=== PATIENT | female | born 1975 | race Caucasian/White ===

== ENCOUNTER 2021-01-24 10:21 | Emergency (ER) | payer OTHER ==
[2021-01-24] MEDS ORDERED: SODIUM CHLORIDE 0.9% 1,000 ML IV STA (11:00)
[2021-01-24] MEDS ORDERED: ONDANSETRON 4 MG/2 ML VIAL IVP STA (11:00)
[2021-01-24] MEDS ORDERED: KETOROLAC 15 MG/ML 1 ML VIAL IVP STA (11:00)
--- NOTE | 2021-01-24 11:32 | XR ---
EXAMINATION TYPE: XR KUB DATE OF EXAM: 01/24/2021 COMPARISON: NONE HISTORY: Pain TECHNIQUE: Single supine KUB image of the abdomen is obtained FINDINGS: Small bowel demonstrates no evidence for dilatation or air fluid levels. Gas and fecal material is seen in non-distended colon. No convincing evidence for pneumoperitoneum. 9.5 mm calculus mid pole right kidney. The lung bases are clear. The osseous structures are intact. IMPRESSION: 1. Overall nonobstructive bowel gas pattern. Right renal calculus.
[2021-01-24 12:20] LABS: Basophils % (A) 0 %; Eosinophils # (A) 0.2 k/uL (0-0.7); Eosinophils % (A) 3 %; HCT 45.9 % (34.0-46.0); HGB 15.3 gm/dL (11.4-16.0); Lymphocytes # (A) 2.2 k/uL (1.0-4.8); Lymphocytes % (A) 26 %; MCH 30.9 pg (25.0-35.0); MCHC 33.3 g/dL (31.0-37.0); MCV 92.7 fL (80.0-100.0); Mean Platelet Volume 7.9; Monocytes # (A) 0.4 k/uL (0-1.0); Monocytes % (A) 5 %; Neutrophils # (A) 5.6 k/uL (1.3-7.7); Neutrophils % (A) 66 %; Platelet Count 270 k/uL (150-450); RBC 4.95 m/uL (3.80-5.40); RDW 13.1 % (11.5-15.5); WBC 8.5 k/uL (3.8-10.6)
[2021-01-24 12:21] LABS: ALT 12 U/L (4-34); AST 19 U/L (14-36); African American GFR (CKD) >90 (>60 ml/min/1.73 sqM); Albumin 3.6 g/dL (3.5-5.0); Alkaline Phosphatase 84 U/L (38-126); Anion Gap 6 mmol/L; Blood Urea Nitrogen 5 mg/dL (7-17); Calcium 8.6 mg/dL (8.4-10.2); Carbon Dioxide 21 mmol/L (22-30); Chloride 110 mmol/L (98-107); Glucose 91 mg/dL (74-99); Lipase 75 U/L (23-300); Non-African American GFR(CKD) >90 (>60 ml/min/1.73 sqM); Potassium 3.9 mmol/L (3.5-5.1); Sodium 137 mmol/L (137-145); Total Bilirubin 0.5 mg/dL (0.2-1.3); Total Protein 6.6 g/dL (6.3-8.2)
--- NOTE | 2021-01-24 12:37 | ED ---
Abdominal Pain HPI - General Chief Complaint: Abdominal Pain Stated Complaint: kidney stone Time Seen by Provider: 01/24/21 10:53 Source: patient Mode of arrival: ambulatory Limitations: no limitations - History of Present Illness Initial Comments: Patient is a 45-year-old female with history of kidney stones, presenting to the emergency department for reexamination. Patient states that she went to [facility] on Sunday, 3 days ago, was sent to [facility] and it was his observation patient. Patient states she was confused is why she was placed in observation and they stated that they did not have urology over the weekend. Patient states she left AMA because she was not getting any care there. Patient did have a CT on Sunday which showed a 10 mm obstructing right renal pelvis stone with mild hydronephrosis. They told her she would need a lithotripsy. She is not seen urology in the past. She denies any fevers or chills. She states currently her pain is about a 7/10 but despite higher than that times. She states the pain is on the right flank with radiation towards the right side. She does admit to some occasional hematuria. Some mild nausea, no vomiting. She denies any chest pain or shortness of breath. She has no further complaints at this time. Upon arrival to the ER her vitals are stable. - Related Data Home Medications Medication Instructions Recorded Confirmed Albuterol Inhaler [Ventolin Hfa 2 puff INHALATION RT-QID PRN 01/24/21 01/24/21 Inhaler] Ascorbic Acid [Vitamin C] 1,000 mg PO DAILY 01/24/21 01/24/21 Cetirizine HCl [Zyrtec] 10 mg PO DAILY PRN 01/24/21 01/24/21 Cholecalciferol (Vitamin D3) 125 mcg PO DAILY 01/24/21 01/24/21 [Vitamin D3 (125 MCG = 5,000 IU)] HYDROcodone/APAP 5-325MG [[place] 1 tab PO Q4H PRN 01/24/21 01/24/21 5-325] Ibuprofen [Motrin] 600 mg PO Q6H PRN 01/24/21 01/24/21 Multivitamins, Thera [Multivitamin 1 tab PO DAILY 01/24/21 01/24/21 (formulary)] Ondansetron [Zofran ODT] 4 mg PO Q8H PRN 01/24/21 01/24/21 Tamsulosin HCl [Flomax] 0.4 mg PO DAILY 01/24/21 01/24/21 Allergies Allergy/AdvReac Type Severity Reaction Status Date / Time No Known Allergies Allergy Verified 01/24/21 12:34 Review of Systems ROS Statement: Those systems with pertinent positive or pertinent negative responses have been documented in the HPI. ROS Other: All systems not noted in ROS Statement are negative. Past Medical History Additional Past Medical History / Comment(s): kidney stones, hodgins lyphoma History of Any Multi-Drug Resistant Organisms: None Reported Past Surgical History: Cholecystectomy, Tubal Ligation Past Psychological History: No Psychological Hx Reported Smoking Status: Current every day smoker Past Alcohol Use History: None Reported Past Drug Use History: Marijuana General Exam - General Exam Comments Initial Comments: GENERAL: Patient is well-developed and well-nourished. Patient is nontoxic and in no acute distress. HEAD: Atraumatic, normocephalic. EYES: Pupils equal round and reactive to light, extraocular movements intact, sclera anicteric, conjunctiva are normal. Eyelids were unremarkable. ENT: Nares patent, oropharynx clear without exudates. Moist mucous membranes. NECK: Normal range of motion, supple without lymphadenopathy or JVD. LUNGS: Unlabored respirations. Breath sounds clear to auscultation bilaterally and equal. No wheezes rales or rhonchi. HEART: Regular rate and rhythm without murmurs, rubs or gallops. ABDOMEN: Soft, mild tenderness to the right flank, right side of the abdomen, normoactive bowel sounds. No guarding, no rebound. No masses appreciated. : Deferred MUSCULOSKELETAL: Normal extremities with adequate strength and normal range of motion, no pitting or edema. No clubbing or cyanosis. NEUROLOGICAL: Patient is alert and oriented x 3. SKIN: Warm, Dry, normal turgor, no rashes or lesions noted. Limitations: no limitations Course Vital Signs 01/24/21 01/24/21 01/24/21 10:44 13:00 14:19 Temperature 98.1 F 98.3 F Pulse Rate 89 72 78 Respiratory 18 16 16 Rate Blood Pressure 174/104 146/55 155/84 O2 Sat by Pulse 98 100 99 Oximetry Medical Decision Making - Medical Decision Making Patient is a 45-year-old female with history of kidney stones, presenting for reexamination. She was at [facility] 3 days ago after finding a 10 mm obstructing right renal pelvis stone. She was then transferred to [facility] and has been waiting to see urologist so she left AMA today and came here for reevaluation. Her pain has been consistent over the past about 4 days, intermittent right flank pain. Patient had CT done at [facility] on 01/22/2021, reads 10 mm obstructing right renal pelvis stone with mild h ydronephrosis, regional fast riding and mild urethral thickening of the proximal ureter. Labs today show normal white count, normal kidney function, urinalysis shows small amount of blood, moderate leukocyte esterase, few urine bacteria. KUB shows naproxen 9.5 mm calculus in the right kidney. I discussed these findings with Dr. Marroquin who is agreeable to see patient in his office over the next few days. I will send patient home with Tylenol and tramadol as she declines taking [place] at home, states it makes her sick. Pt was instructed not to take anti-inflammatories, per Dr. Marroquin. Patient is in agreement with this plan of care. At she is stable for discharge. Return parameters were discussed with her to verbalize understanding. Case discussed with Dr. Feliciano. - Lab Data Result diagrams: 01/24/21 11:47 01/24/21 11:47 Lab Results 01/24/21 01/24/21 01/24/21 Range/Units 11:47 11:47 11:47 WBC 8.5 (3.8-10.6) k/uL RBC 4.95 (3.80-5.40) m/uL Hgb 15.3 (11.4-16.0) gm/dL Hct 45.9 (34.0-46.0) % MCV 92.7 (80.0-100.0) fL MCH 30.9 (25.0-35.0) pg MCHC 33.3 (31.0-37.0) g/dL RDW 13.1 (11.5-15.5) % Plt Count 270 (150-450) k/uL MPV 7.9 Neutrophils % 66 % Lymphocytes % 26 % Monocytes % 5 % Eosinophils % 3 % Basophils % 0 % Neutrophils # 5.6 (1.3-7.7) k/uL Lymphocytes # 2.2 (1.0-4.8) k/uL Monocytes # 0.4 (0-1.0) k/uL Eosinophils # 0.2 (0-0.7) k/uL Basophils # 0.0 (0-0.2) k/uL Sodium 137 (137-145) mmol/L Potassium 3.9 (3.5-5.1) mmol/L Chloride 110 H (98-107) mmol/L Carbon Dioxide 21 L (22-30) mmol/L Anion Gap 6 mmol/L BUN 5 L (7-17) mg/dL Creatinine 0.54 (0.52-1.04) mg/dL Est GFR (CKD-EPI)AfAm >90 (>60 ml/min/1.73 sqM) Est GFR (CKD-EPI)NonAf >90 (>60 ml/min/1.73 sqM) Glucose 91 (74-99) mg/dL Calcium 8.6 (8.4-10.2) mg/dL Total Bilirubin 0.5 (0.2-1.3) mg/dL AST 19 (14-36) U/L ALT 12 (4-34) U/L Alkaline Phosphatase 84 (38-126) U/L Total Protein 6.6 (6.3-8.2) g/dL Albumin 3.6 (3.5-5.0) g/dL Lipase 75 (23-300) U/L Urine Color Light Yellow Urine Appearance Clear (Clear) Urine pH 6.0 (5.0-8.0) Ur Specific [place] 1.008 (1.001-1.035) Urine Protein Negative (Negative) Urine Glucose (UA) Negative (Negative) Urine Ketones Negative (Negative) Urine Blood Small H (Negative) Urine Nitrite Negative (Negative) Urine Bilirubin Negative (Negative) Urine Urobilinogen <2.0 (<2.0) mg/dL Ur Leukocyte Esterase Moderate H (Negative) Urine RBC 23 H (0-5) /hpf Urine WBC 7 H (0-5) /hpf Ur Squamous Epith Cells 1 (0-4) /hpf Amorphous Sediment Rare H (None) /hpf Urine Bacteria Few H (None) /hpf Urine Mucus Rare H (None) /hpf Disposition Clinical Impression: Right kidney stone Disposition: HOME SELF-CARE Condition: Stable Instructions (If sedation given, give patient instructions): Kidney Stones (ED) Additional Instructions: Please return to the Emergency Department if symptoms worsen or any other concerns. You may take Tylenol every 4-6 hours for pain relief. Please follow up with urology as discussed. Is patient prescribed a controlled substance at d/c from ED?: No Referrals: Eduar Harrison MD [Primary Care Provider] - 1-2 days Davi Marroquin MD [STAFF PHYSICIAN] - 1-2 days Time of Disposition: 14:04
[2021-01-24 12:57] LABS: Amorphous Sediment,Urine Rare /hpf; Appearance,Urine Clear (Clear); Bacteria,Urine Few /hpf; Bilirubin,Urine Negative (Negative); Blood,Urine Small (Negative); Color,Urine Light Yellow; Glucose,Urine (UA) Negative (Negative); Ketones,Urine Negative (Negative); Leukocyte Esterase,Urine Moderate (Negative); Mucus,Urine Rare /hpf; Nitrite,Urine Negative (Negative); Protein,Urine Negative (Negative); RBC,Urine 23 /hpf (0-5); Specific Gravity,Urine 1.008 (1.001-1.035); Squamous Epithelial Cell,Urine 1 /hpf (0-4); Urobilinogen,Urine <2.0 mg/dL (<2.0); WBC,Urine 7 /hpf (0-5)
[2021-01-24 13:22] VITALS: RESP 16
[2021-01-24] MEDS ORDERED: traMADol 50 MG STARTER PACK 3 TAB BTL PO STA (14:03)
[2021-01-24 14:20] VITALS: BP 155/84; PULSE 78; TEMP 98.3
== END 2021-01-24 14:20 | disposition home or self-care (01) ==
LOC: EC 10:21
DX: N13.2 Hydronephrosis with renal and ureteral calculous obstruction (principal); F17.200 Nicotine dependence, unspecified, uncomplicated; F12.90 Cannabis use, unspecified, uncomplicated; Z87.442 Personal history of urinary calculi; Z90.49 Acquired absence of other specified parts of digestive tract; Z98.51 Tubal ligation status; Z79.899 Other long term (current) drug therapy
CPT/HCPCS: 99284; 96374; 96375; 96361; 36415; 80053; 83690; 85025; 81001; 74018; J2405; J1885

== ENCOUNTER 2021-01-27 09:11 | Day surgery (SDC) | payer BC, OTHER ==
[2021-01-25 12:10] VITALS: BMI 40.2
--- NOTE | 2021-01-26 07:26 | P.GSHP ---
History of Present Illness H&P Date: 01/26/21 Chief Complaint: Right renal colic The patient is a 45-year-old white female who experienced acute onset of right flank pain radiating to the right lower abdomen in 01/21/2021. She had previous episodes of kidney stones 20 years ago and again in June 2020. CT scan shows mild right hydronephrosis due to a 1 cm right renal pelvic calculus. The computed tomography scan report and images are unavailable to me. The patient believes she was told there was a second right renal calculus. - Constitutional Constitutional: Denies chills, Denies fever - Gastrointestinal Gastrointestinal: Reports nausea - Genitourinary (Female) Genitourinary: Reports flank pain, Reports hematuria, Reports kidney stones Past Medical History Past Medical History: Asthma, Cancer, GERD/Reflux Additional Past Medical History / Comment(s): kidney stones, HODGKINS LYMPHOMA History of Any Multi-Drug Resistant Organisms: None Reported Past Surgical History: Cholecystectomy, Tubal Ligation Additional Past Surgical History / Comment(s): PORT FOR CHEMO AND REMOVED Smoking Status: Current every day smoker - Past Family History Mother Family Medical History: No Reported History Medications and Allergies Home Medications Medication Instructions Recorded Confirmed Type Albuterol Inhaler [Ventolin Hfa 2 puff INHALATION RT-QID PRN 01/24/21 01/25/21 History Inhaler] Ascorbic Acid [Vitamin C] 1,000 mg PO DAILY 01/24/21 01/25/21 History Cetirizine HCl [Zyrtec] 10 mg PO DAILY PRN 01/24/21 01/25/21 History Cholecalciferol (Vitamin D3) 125 mcg PO DAILY 01/24/21 01/25/21 History [Vitamin D3 (125 MCG = 5,000 IU)] HYDROcodone/APAP 5-325MG [[place] 1 tab PO Q4H PRN 01/24/21 01/25/21 History 5-325] Ibuprofen [Motrin] 600 mg PO Q6H PRN 01/24/21 01/25/21 History Multivitamins, Thera [Multivitamin 1 tab PO DAILY 01/24/21 01/25/21 History (formulary)] Ondansetron [Zofran ODT] 4 mg PO Q8H PRN 01/24/21 01/25/21 History Allergies Allergy/AdvReac Type Severity Reaction Status Date / Time No Known Allergies Allergy Verified 01/25/21 11:53 Surgical - Exam - General well developed, well nourished, no distress - Neck no masses, trachea midline - Respiratory normal respiratory effort, clear to auscultation - Cardiovascular Rhythm: regular Abnormal Heart Sounds: no systolic murmur, no diastolic murmur, no rub, no S3 Gallop, no S4 Gallop, no click, no other - Abdomen Abdomen: soft, non tender, no guarding, no rigid, no rebound - Psychiatric oriented to time, oriented to person, oriented to place, speech is normal, memory intact Results - Imaging Abdominal x-ray: report reviewed, image reviewed Assessment and Plan (1) Right kidney stone Status: Acute Code(s): N20.0 - CALCULUS OF KIDNEY SNOMED Code(s): 03044886 Plan: I had a lengthy discussion with the patient regarding her 1 cm right renal pelvi c calculus. Optimal treatment options consist of extracorporal shockwave lithotripsy (ESWL) or ureteroscopy with laser lithotripsy. His procedure was reviewed in detail, including the pros, cons, and risks associated with each. She has elected to undergo cystoscopy, right ureteroscopy with Holmium laser lithotripsy, possible stone basketing, right ureteral stent insertion. She understands risks to include anesthesia, bleeding, infection, ureteral injury, and inability to successfully remove the calculus. The possible need for secondary treatment was also discussed.
[~2021-01-27 09:11] MED LIST: DEXAMETHASONE SOD PHOSPHATE 4 MG/ML 1 ML VIAL IV ONE; HYDROmorphone 0.5 MG/0.5 ML SYRINGE IVP PRN; LACTATED RINGERS 1,000 ML IV SCH; ONDANSETRON 4 MG/2 ML VIAL IVP ONE
--- NOTE | 2021-01-27 09:34 | XR ---
EXAMINATION TYPE: XR KUB DATE OF EXAM: 01/27/2021 Comparison: 01/24/2021 Clinical History: 45-year-old female presurgical for right-sided stone OR SCHEDULED 01/27/21 Findings: Redemonstrated 1 cm calcification right mid abdomen. Some surgical clips are present in the right par amedian mid abdomen. Nonobstructive bowel gas pattern. No significant stool burden. Impression: Stable 1 cm right-sided renal calculus. Some surgical clips also noted in the right side of the abdom en.
[2021-01-27] MEDS ORDERED: MIDAZOLAM 2 MG/2 ML VIAL ONE (11:00)
[2021-01-27] MEDS ORDERED: ROCURONIUM 10 MG/ML (5 ML VIAL) IV ONE (11:00)
[2021-01-27] MEDS ORDERED: NEOSTIGMINE 1 MG/ML 10 ML VIAL ONE (11:00)
[2021-01-27] MEDS ORDERED: LIDOCAINE 1% INJ 10MG/ML (20 ML MDV) ONE (11:00)
[2021-01-27] MEDS ORDERED: fentaNYL (PF) 50 MCG/ML 2 ML AMP ONE (11:00)
[2021-01-27] MEDS ORDERED: GLYCOPYRROLATE 0.2 MG/ML 2 ML VIAL ONE (11:00)
[2021-01-27] MEDS ORDERED: SUCCINYLCHOLINE CHLORIDE 100 MG/5 ML SYR IV ONE (11:00)
[2021-01-27] MEDS ORDERED: PROPOFOL 10 MG/ML 20 ML VIAL IV ONE (11:00)
[2021-01-27] MEDS ORDERED: IOPAMIDOL-370 50ML BTL INJ ONE (11:29)
[2021-01-27 12:45] VITALS: TEMP 97
[2021-01-27 13:18] VITALS: RESP 18
[2021-01-27] MEDS ORDERED: HYDROcodone/APAP 5-325MG 1 EACH TAB PO ONE (13:40)
[2021-01-27] MEDS ORDERED: KETOROLAC 15 MG/ML 1 ML VIAL ONE (13:41)
[2021-01-27] MEDS ORDERED: KETOROLAC 15 MG/ML 1 ML VIAL IVP ONE (13:41)
[2021-01-27] MEDS ORDERED: ONDANSETRON 4 MG/2 ML VIAL ONE (13:42)
[2021-01-27] MEDS ORDERED: ONDANSETRON 4 MG/2 ML VIAL IVP ONE (13:42)
[2021-01-27] MEDS ORDERED: HYDROcodone/APAP 5-325MG 1 EACH TAB ONE (13:42)
[2021-01-27 13:56] VITALS: BP 171/90; PULSE 60
--- NOTE | 2021-01-27 14:36 | P.OP ---
Date of Procedure: 01/27/21 Preoperative Diagnosis: Right renal calculi Postoperative Diagnosis: Same Procedure(s) Performed: Cystoscopy, right retrograde pyelogram, right ureteroscopy with Holmium laser lithotripsy, right ureteral stent insertion Anesthesia: NAVA Surgeon: Davi Marroquin Estimated Blood Loss (ml): 10 IV fluids (ml): 800 Pathology: none sent Condition: stable Disposition: PACU Indications for Procedure: The patient is a 45-year-old white female who experienced acute onset of right flank pain radiating to the right lower abdomen in 01/21/2021. She had previous episodes of kidney stones 20 years ago and again in June 2020. CT scan shows mild right hydronephrosis due to a 1 cm right renal pelvic calculus, along with an additional 3 mm right renal calculus. Operative Findings: 2 right renal calculi, both fragmented completely. Description of Procedure: The patient was taken to the operating room and placed in the dorsolithotomy position, with legs supported in Paul stirrups. The external genitalia was prepped and draped sterilely. The 30 lens was used to introduce the 21-[place] cystoscopic sheath through the urethra and into the bladder under direct vision. The bladder was examined in its entirety. Both ureteral orifices were normal anatomic location and configuration, and clear urine effluxed from both. No tumors or foreign bodies were seen. Using a 10-Latvian cone-tipped catheter, a right retrograde pyelogram was performed. The course of the ureter appeared normal. The calculus was seen as a filling defect within the right renal pelvis. A 0.038 inch Glidewire was passed through the cystoscope. The ureteral orifice was cannulated, and the Glidewire was advanced up to the renal pelvis. The cystoscope was removed, and an 11/13-Latvian ureteral access catheter was passed over the wire, up to the proximal ureter. The flexible ureteroscope was then passed through the ureteral access catheter sheath, up to the renal pelvis. Each calyx was examined. The 1 cm calculus was seen within a lower pole calyx. A 3 mm calculus was seen within a mid pole calyx. The 272 micron Holmium laser probe was passed through the ureteroscope, and lithotripsy was performed. Both calculi were fragmented completely, leaving no residual calculus fragments exceeding the size of the laser fiber tip. Lithotripsy was done primarily utilizing a dusting mechanism, with popcorning performed at the end. The calculi were not dense, likely composed of calcium oxalate dihydrate. The ureteroscope was removed. The Glidewire was passed through the ureteral access catheter sheath, which was removed. The Glidewire was backloaded into the cystoscope, which was passed into the bladder. A 24 cm, 4.8-Latvian double-J ureteral stent was placed over the wire. Proper stent positioning was verified fluoroscopically and endoscopically. The bladder was emptied and the cystoscope removed. The patient tolerated the procedure well and was taken to the recovery room in stable condition. [facility] [place] Report: Procedure Acuity: Semi-Urgent Stone Size and Location: 1 cm, right renal pelvis Ureteral Dilation: No Ureteral Access Sheath Used: Yes Stone Sent for Analysis: No All Stones/Fragments Were Removed with a Basket: No Complications: No Preoperative Antibiotics Given: Yes Stent Placed: Yes If Stent Placed, Was String Left Attached: No If Stent Placed, When is it to be Removed: 1 week Discharge Medications: Tamsulosin
--- NOTE | 2021-01-27 15:16 | FL ---
EXAMINATION TYPE: FL urography retrograde DATE OF EXAM: 01/27/2021 FLUOROSCOPY Fluoroscopy time of 42 seconds was used during right renal calculus intervention. 2 image/s document /s the procedure.
== END 2021-01-27 14:10 | disposition home or self-care (01) ==
LOC: OR 09:11
PROVIDERS: ATTEND Urology
DX: N20.0 Calculus of kidney (principal); Z87.442 Personal history of urinary calculi
CPT/HCPCS: 52356; 81025; 74420; 74018; C2625; C1758; C1769; J2250; J1100; J2710; J0690; J2405; J2001; J3010; J1885; J0330; J2704; Q9967